=== PATIENT | male | born 1995 | race American Indian/Alaskan Native ===

== ENCOUNTER 2022-02-08 16:56 | Emergency (ER) | payer BC ==
[2022-02-08 17:48] VITALS: BP 119/82
--- NOTE | 2022-02-09 02:50 | Ultrasound Report ---
ULTRASOUND SCROTUM INDICATION: Left testicular pain x24 hours. COMPARISON None available. FINDINGS: RIGHT TESTICLE: 4.6 x 2.3 x 3.1 cm. Normal echogenicity. Normal color flow. No solid or cystic lesion s. RIGHT EPIDIDYMIS: No significant abnormality. LEFT TESTICLE: 5.0 x 2.1 x 3.0 cm. Normal echogenicity. Normal color flow. No solid or cystic lesions . LEFT EPIDIDYMIS: No significant abnormality. HYDROCELE: Small hydroceles are noted bilaterally. VARICOCELE: None seen. ADDITIONAL FINDINGS: None. IMPRESSION: Small hydroceles without other acute findings to explain the patient's left testicular pain. Signer Name: Mo Oropeza MD Signed: 02/09/2022 2:45 AM Workstation Name: [id number]
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
== END 2022-02-09 03:38 | disposition home or self-care (01) ==
LOC: ED 16:56
DX: N43.2 Other hydrocele (principal)
CPT/HCPCS: 93975; 99283